=== PATIENT | female | born 1975 | race Two or more races ===

== ENCOUNTER 2016-09-06 13:55 | Emergency (ER) | payer OTHER ==
[~2016-09-06] VITALS: Ht 162.6 cm; Wt 54.4 kg
[2016-09-06 14:10] VITALS: BP 121/81
[2016-09-06] MEDS ORDERED: cetrizine 10 MG TABLET ONE (14:42)
[2016-09-06] MEDS ORDERED: cetrizine 10 MG TABLET PO ONE (15:00)
== END 2016-09-06 14:55 | disposition home or self-care (01) ==
LOC: ER 13:57
DX: T78.40XA Allergy, unspecified, initial encounter (principal); S80.862A Insect bite (nonvenomous), left lower leg, initial encounter; S80.861A Insect bite (nonvenomous), right lower leg, initial encounter; J45.909 Unspecified asthma, uncomplicated; W57.XXXA Bitten or stung by nonvenomous insect and other nonvenomous arthropods, initial encounter; Y93.89 Activity, other specified; Y92.89 Other specified places as the place of occurrence of the external cause; Y99.8 Other external cause status
CPT/HCPCS: 99283; A4606; Z7610

== ENCOUNTER 2022-04-29 15:45 | Inpatient (IN) | payer BC, OTHER ==
[~2022-04-29] VITALS: Ht 160 cm; Wt 50.3 kg
--- NOTE | 2022-04-29 16:33 | NUR ---
Patient came in to the er sent by oncologist for possible pleural effusion or atelectasis. On room air, breathing evenly and unlabored. Kept comfortable, will continue to monitor accordingly.
[2022-04-29 19:57] LABS: BASOPHILS % (AUTO) 0.8 % (0.0-2.0); EOSINOPHILS % (AUTO) 1.2 % (0.0-6.0); HEMATOCRIT 35 % (33-45); HEMOGLOBIN 11.6 g/dL (11.5-14.8); LYMPHOCYTES # (AUTO) 0.4 K/uL (0.8-4.8); LYMPHOCYTES % (AUTO) 16.1 % (20.0-44.0); MEAN CORPUSCULAR HGB CONC 33 g/dl (31.0-36.0); MEAN CORPUSCULAR VOLUME 96 fL (82-100); MONOCYTES # (AUTO) 0.2 K/uL (0.1-1.30); MONOCYTES % (AUTO) 6.1 % (2.0-12.0); NEUTROPHILS # (AUTO) 2.1 K/uL (1.8-8.9); NEUTROPHILS % (AUTO) 75.8 % (43.0-81.0); PLATELET COUNT (AUTO) 177 K/uL (150-450); RED BLOOD CELL COUNT(AUTO) 3.62 MIL/uL (4.0-5.2); WHITE BLOOD COUNT (AUTO) 2.7 K/uL (4.3-11.0)
[2022-04-29 20:01] LABS: ALBUMIN 3.6 g/dL (3.4-5.0); BILIRUBIN,TOTAL 0.3 mg/dL (0.2-1.0); CALCIUM, SERUM 8.2 mg/dL (8.5-10.1); CREATININE 0.5 mg/dL (0.6-1.3); POTASSIUM 3.8 mmol/L (3.5-5.1)
--- NOTE | 2022-04-29 20:36 | NUR ---
pt placed on nrb 15lpm
[2022-04-29] MEDS ORDERED: KETAMINE HCL (500MG/10ML) 50 MG/ML VIAL ONE (22:44)
[2022-04-29] MEDS ORDERED: KETAMINE HCL(200MG/20ML) 10 MG/ML VIAL IV ONE (23:00)
[2022-04-29 23:11] LABS: BAND % (MANUAL) 6 % (0.0-5.0); LYMPHOCYTES % (MANUAL) 14 % (16-48); MONOCYTES % (MANUAL) 2 % (0-11.0); NEUTROPHILS % (MANUAL) 78 (42-76)
--- NOTE | 2022-04-29 23:15 | NUR ---
SET UP FOR RT SIDED CHEST TUBE WITH DR DIAZ 5 VS 99/55 106 HR 100% 15 LPM NRB 2319 KETAMINE 25MG RT HAND 20G VS: 133/89 122 HR 100% NRB 2319 PIGTAIL INSERTED, ATRIA BUBBLING 2 VS 91/54 85 BPM 100% NRB 2339 ZOFRAN 4MG GIVEN 2343 127/89 94HR 98% NRB
[2022-04-29] MEDS ORDERED: ONDANSETRON HCL/PF 4 MG/2 ML VIAL ONE (23:38)
[2022-04-30] VITALS (7 sets, daily range): BP systolic 90–103; BP diastolic 60–78
[2022-04-30] MEDS ORDERED: PROCHLORPERAZINE EDISYLATE 10 MG/2 ML VIAL IVP ONE
[2022-04-30] MEDS ORDERED: PROCHLORPERAZINE EDISYLATE 10 MG/2 ML VIAL ONE
[2022-04-30] MEDS ORDERED: diphenhydrAMINE HCL 50 MG/ML VIAL ONE
[2022-04-30] MEDS ORDERED: diphenhydrAMINE HCL 50 MG/ML VIAL IV ONE
[2022-04-30] MEDS ORDERED: ONDANSETRON HCL/PF 4 MG/2 ML VIAL ONE (00:02)
--- NOTE | 2022-04-30 00:10 | NUR ---
PETE SENT TO LAB
--- NOTE | 2022-04-30 00:16 | NUR ---
PT STILL C/O NAUSEA. MD AWARE. VERBAL ORDER FOR 4MG ZOFRAN NOTED AND CARRIED OUT.
[2022-04-30] MEDS ORDERED: MAGNESIUM HYDROXIDE 30 ML UDC PO PRN (00:30)
[2022-04-30] MEDS ORDERED: ACETAMINOPHEN 325 MG TABLET PO PRN (00:30)
[2022-04-30] MEDS ORDERED: ONDANSETRON HCL/PF 4 MG/2 ML VIAL IV ONE ×2 (00:30)
[2022-04-30] MEDS ORDERED: MAG HYDROX/AL HYDROX/SIMETH 30 ML UDC PO PRN (00:30)
[2022-04-30] MEDS ORDERED: Z GUARD REMEDY 4 OZ OINT TP PRN (00:30)
[2022-04-30] MEDS ORDERED: LORAZEPAM INJ 2 MG/ML VIAL IV PRN (00:30)
[2022-04-30] MEDS ORDERED: ONDANSETRON HCL/PF 4 MG/2 ML VIAL IVP PRN (00:30)
--- NOTE | 2022-04-30 01:00 | NUR ---
REPORT GIVEN TO RN RR
--- NOTE | 2022-04-30 01:20 | NUR ---
GIFT OFFICER NOTES PATIENT RECEIVED FROM ER VIA [facility] ACCOMPANIED BY RN AND TRAVOGRAPH OPERATOR. BREATHING ON ROOM AIR, SATURATION 100%. VITAL SIGNS STABLE. PNEUMOTHORAX DETECTED. CHEST TUBE IN PLACED AND SECURED. IV ACCESS: RIGHT CENTRAL VENOUS LINE WITH ONGOING CHEMOTHERAPY. WITH ADVANCED DIRECTIVES PROVIDED. READ AND DOCUMENTED. CHEST TUBE INCISION SITE AT RIGHT MID AXILLARY LINE AT 5TH ICS. DRY AND INTACT. ORIENTED TO ROOM SET-UP. SAFETY MEASURES INITIATED. CALL LIGHT WITHIN REACH. PATIENT REQUESTED TO BE ALONE AT THIS TIME. PROVIDED COMFORT. WILL CONT TO MONITOR Addendum: 04/30/22 at 0449 by DUKE STORY RN ON NEUTROPENIC PRECAUTION.
[2022-04-30] MEDS: IV NS 0.9% 1,000 ML IV PRN ×2 (03:36→23:33)
--- NOTE | 2022-04-30 07:01 | NUR ---
HIGHWAY TRUCK DRIVER CLOSING NOTES PATIENT AWAKE IN BED. FOWLERS POSITION. ON NEUTROPENIC PREC. BREATHING ON ROOM AIR, SATURATION 100%. VITAL SIGNS STABLE. CHEST TUBE IN PLACED AND SECURED. IV ACCESS: RIGHT CENTRAL VENOUS LINE WITH ONGOING CHEMOTHERAPY. CHEST TUBE INCISION SITE AT RIGHT MID AXILLARY LINE AT 5TH ICS. DRY AND INTACT. LEFT HAND #20, RUNNING NS @75ML/HR, INFUSING WELL. SAFETY MEASURES MAINTAINED. CALL LIGHT WITHIN REACH. WILL ENDORSE TO NEXT SHIFT FOR VIKRAM.
--- NOTE | 2022-04-30 07:30 | NUR ---
RN Opening Note Pt AOx4 able to express her concerns. Introduced myself to pt and discussed plan of care, pt states she would like to transfer to [facility] since she has established care there. Will communicate with CM. All safety precautions taken, call light and table within reach, bed at lowest position. Will continue to monitor throughout shift.
[2022-04-30] MEDS ORDERED: ALBU8.5H8 INH (08:13)
[2022-04-30] MEDS: PANTOPRAZOLE 40 MG VIAL IV SCH (09:08)
[2022-04-30 12:25] LABS: BASOPHILS % (AUTO) 0.6 % (0.0-2.0); EOSINOPHILS % (AUTO) 0.3 % (0.0-6.0); HEMATOCRIT 27 % (33-45); HEMOGLOBIN 8.8 g/dL (11.5-14.8); LYMPHOCYTES # (AUTO) 0.3 K/uL (0.8-4.8); LYMPHOCYTES % (AUTO) 17.5 % (20.0-44.0); MEAN CORPUSCULAR HGB CONC 33 g/dl (31.0-36.0); MEAN CORPUSCULAR VOLUME 98 fL (82-100); MONOCYTES # (AUTO) 0.2 K/uL (0.1-1.30); MONOCYTES % (AUTO) 11.2 % (2.0-12.0); NEUTROPHILS # (AUTO) 1.1 K/uL (1.8-8.9); NEUTROPHILS % (AUTO) 70.4 % (43.0-81.0); PLATELET COUNT (AUTO) 133 K/uL (150-450); RED BLOOD CELL COUNT(AUTO) 2.72 MIL/uL (4.0-5.2)
[2022-04-30 12:32] LABS: WHITE BLOOD COUNT (AUTO) 1.5 K/uL (4.3-11.0)
[2022-04-30 12:51] LABS: ALBUMIN 2.6 g/dL (3.4-5.0); BILIRUBIN,TOTAL 0.7 mg/dL (0.2-1.0); CALCIUM, SERUM 6.4 mg/dL (8.5-10.1); CREATININE 0.3 mg/dL (0.6-1.3); POTASSIUM 2.9 mmol/L (3.5-5.1); TOTAL PROTEIN, SERUM 5.1 g/dL (6.4-8.2)
[2022-04-30] MEDS ORDERED: POTASSIUM CHLORIDE 20 MEQ TAB.PRT.SR PO ONE (14:00)
--- NOTE | 2022-04-30 18:09 | NUR ---
RN Closing Note Patient AOx4 able to express her concerns. Throughout shift pt communicated with her providers and made them aware of her current condition. Patient stable throughout shift, administered medication and provided care as needed. All safety precautions taken, call light and table within reach. Will endorse to night nurse for continuity of care.
--- NOTE | 2022-04-30 19:05 | NUR ---
INSTRUMENT DESIGNER OPENING NOTE PATIENT IS SITTING IN BED WATCHING IPAD. HER FAMILY MEMBER IS IN HER ROOM. SHE IS ALERT AND ORIENTED, AO X 4. SHE IS ON RA, TOLERATED WELL. NO S/S OF SOB OR DISTRESS. IV ACCESS IS AT HER RIGHT HAND, #20G, SL. PATIENT REFUSED HAVING THE IV FLUID RUNNING CURRENTLY. SHE IS ON EXTERNAL TELE MONITOR, HER HEART RHYTHM IS SR AT 80s. PATIENT IS CALM. NO COMPLAIN OF HAVING PAIN. PATIENT IS ON REVERSE ISOLATION. PATIENT HAS CHEST TUBE; PATENT AND INTACT. SAFETY PRECAUTIONS ARE IN PLACE: BED IN LOWEST AND LOCKED POSITION; CALL GOODRICH AND TABLE ARE WITHIN REACH; SIDE RAILS UP X 2. INSTRUCTED PATIENT TO USE THE CALL GOODRICH IF SHE NEEDS HELP. WILL CONTINUE MONITORING THE PATIENT AND PROVIDE THE CARE SHE NEEDS.
--- NOTE | 2022-04-30 21:10 | NUR ---
MANAGER MEDICAL AFFAIRS NOTE CREDIT CHECKER VITAL SIGNS FOR THE PATIENT, RR IS 12. RECHECKED THE PATIENT AND COUNTED NUMBER OF CHEST RISING FOR 60 SECONDS, IT IS TOTAL 16/ MIN. PATIENT HAS NO S/S OF SOB OR DISTRESS.
--- NOTE | 2022-04-30 23:48 | NUR ---
ENT SURGEON NOTE PATIENT STATED SHE FELT FEVERISH. TEMPERATURE WAS TAKEN, IT IS: 98.5F, ORALLY. PATIENT REFUSED HAVING THE IV FLUID NS @75 ML/HR RUNNING BECAUSE SHE NEEDED TO CONTACT HER ONCOLOGIST TOMORROW AND DISCUSSED WHETHER IT WAS OKAY FOR HER TO HAVE THE IV FLUID RUNNING.
--- NOTE | 2022-05-01 00:25 | NUR ---
SUPPLY CHAIN TECH NOTE RECEIVED PHONE CALL FROM [facility] TRANSFER NURSE VC, ACCORDING TO HIM, THEY DON'T HAVE BED FOR THIS PATIENT NOW. PATIENT'S INFORMATION WAS TAKEN BY , AND INSTRUCTED TO LET INVESTIGATOR FRAUD TO FOLLOW UP WITH THEM TOMORROW. CHARGE NURSE, SANTO, NOTIFIED.
[2022-05-01 01:17] VITALS: BP 95/58
[2022-05-01 03:45] LABS: BAND % (MANUAL) 8 % (0.0-5.0); BASOPHILS % (MANUAL) 0 % (0.0-2.0); EOSINOPHILS % (MANUAL) 0 % (0-4); LYMPHOCYTES % (MANUAL) 16 % (16-48); MONOCYTES % (MANUAL) 12 % (0-11.0); NEUTROPHILS % (MANUAL) 64 (42-76)
[2022-05-01 06:07] VITALS: BP 98/65
--- NOTE | 2022-05-01 06:51 | NUR ---
LENS INSERTER CLOSING NOTE PATIENT IS SLEEPING. EASILY BEING AROUSED. PATIENT IS ON RA, TOLERATED WELL. INSTRUCTED PATIENT TO PUT THE NC ON IF SHE FEELS SOB OR DISTRESS AND CALL FOR HELP. PATIENT VERBALIZED UNDERSTANDING. SHE IS ON EXTERNAL TELE MONITOR, HER HEART RHYTHM IS SR AT 80s. PATIENT IS CALM. NO COMPLAIN OF HAVING PAIN. PATIENT IS ON REVERSE ISOLATION. PATIENT HAS CHEST TUBE, PATENT AND INTACT. ZERO OUTPUT FROM THE CHEST TUBE. SAFETY PRECAUTIONS ARE IN PLACE: BED IN LOWEST AND LOCKED POSITION; CALL GOODRICH AND TABLE ARE WITHIN REACH; SIDE RAILS UP X 2. INSTRUCTED PATIENT TO USE THE CALL GOODRICH IF SHE NEEDS HELP. WILL ENDORSE NEXT SHIFT NURSE TO CONTINUE PATIENT CARE.
[2022-05-01 06:57] LABS: BASOPHILS % (AUTO) 0.4 % (0.0-2.0); EOSINOPHILS % (AUTO) 1.3 % (0.0-6.0); HEMATOCRIT 30 % (33-45); HEMOGLOBIN 9.9 g/dL (11.5-14.8); LYMPHOCYTES # (AUTO) 0.4 K/uL (0.8-4.8); LYMPHOCYTES % (AUTO) 34.5 % (20.0-44.0); MEAN CORPUSCULAR HGB CONC 34 g/dl (31.0-36.0); MEAN CORPUSCULAR VOLUME 97 fL (82-100); MONOCYTES # (AUTO) 0.1 K/uL (0.1-1.30); NEUTROPHILS # (AUTO) 0.6 K/uL (1.8-8.9); NEUTROPHILS % (AUTO) 52.8 % (43.0-81.0); PLATELET COUNT (AUTO) 144 K/uL (150-450); RED BLOOD CELL COUNT(AUTO) 3.04 MIL/uL (4.0-5.2)
[2022-05-01 07:23] LABS: CALCIUM, SERUM 8.4 mg/dL (8.5-10.1); CREATININE 0.4 mg/dL (0.6-1.3); MAGNESIUM 2.4 mg/dL (1.8-2.4); PHOSPHORUS 3.5 mg/dL (2.5-4.9); POTASSIUM 3.8 mmol/L (3.5-5.1)
--- NOTE | 2022-05-01 07:25 | NUR ---
RN CLOSING NOTE RECEIVED PATIENT IN BED, AWAKE, A/O X4, NO SIGNS OF ACUTE DISTRESS NOTED. ON ROOM AIR, NO SOB NOTED, BREATHING EVEN AND UNLABORED. NOTED WITH CHEST TUBE ON RIGHT CHEST, NO OUTPUT NOTED. WITH IV ACCESS ON RIGHT HAND #20G, INTACT AND PATENT, IVF OF NS NOT RUNNING PER PATIENTS REQUEST. ON TELE MONITOR CURRENT READING SHOWING SINUS RHYTHM, HR @77. SAFETY MEASURE IN PLACE. BED IN LOWEST AND LOCKED POSITION, SIDE RAILS UP X2, CALL LIGHT PLACED WITHIN EASY REACH. WILL CONTINUE TO MONITOR PATIENT. Addendum: 05/01/22 at 1855 by ROBERTA ALBARADO RN *OPENING NOTE
[2022-05-01 08:31] VITALS: BP 99/56
[2022-05-01] MEDS: PANTOPRAZOLE 40 MG VIAL IV SCH (09:00)
[2022-05-01 12:01] VITALS: BP 94/67
[2022-05-01 12:08] LABS: BAND % (MANUAL) 1 % (0.0-5.0); LYMPHOCYTES % (MANUAL) 45 % (16-48); MONOCYTES % (MANUAL) 9 % (0-11.0); NEUTROPHILS % (MANUAL) 45 (42-76)
[2022-05-01] MEDS ORDERED: ALBUTEROL FS 2.5 MG/0.5 ML VIAL.NEB NEB PRN (13:30)
[2022-05-01] MEDS ORDERED: ALBUTEROL SULFATE 8 GM HFA.AER.AD IH SCH (13:30)
[2022-05-01 15:53] LABS: THYROID STIMULATING HORMONE 1.215 uIU/mL (0.358-3.74)
[2022-05-01 15:59] VITALS: BP 112/72
[2022-05-01] MEDS ORDERED: ZOSYN IVPB 3.375 G in IV D5W 50ml IV ONE (16:00)
--- NOTE | 2022-05-01 16:00 | NUR ---
RN NOTE PATIENT'S ZOSYN 3.375GM NOT YET GIVEN PER PATIENT'S REQUEST. PATIENT REQUESTS TO ASK HER ONCOLOGIST FIRST IF OK TO GIVE BEFORE TAKING THE MEDICATION.
[2022-05-01] MEDS: TBO-FILGRASTIM 300 MCG/0.5 ML SYRINGE SQ SCH (17:34)
--- NOTE | 2022-05-01 18:30 | NUR ---
RN NOTE PATIENT'S ZOSYN NOT ADMINISTERED PER PATIENT'S REQUEST. REFUSED MEDS UNLESS GIVEN AN OK FROM HER ONCOLOGIST. PT LEFT MESSAGE TO ONCOLOGIST BUT NO REPLY YET. WILL ENDORSE TO NEXT SHIFT.
--- NOTE | 2022-05-01 18:55 | NUR ---
RN OPENING PATIENT IN BED, AWAKE, A/O X4, NO SIGNS OF ACUTE DISTRESS NOTED. ON ROOM AIR, NO SOB NOTED, BREATHING EVEN AND UNLABORED. WITH CHEST TUBE ON RIGHT CHEST, NO OUTPUT NOTED. IV ACCESS ON RIGHT HAND #20G, INTACT AND PATENT, SALINE LOCKED. REMAINS ON TELE MONITOR CURRENT READING SHOWING SINUS RHYTHM, HR @90. SAFETY MEASURE IN PLACE. BED IN LOWEST AND LOCKED POSITION, SIDE RAILS UP X2, CALL LIGHT PLACED WITHIN EASY REACH. WILL ENDORSE TO NEXT SHIFT FOR CONTINUITY OF CARE.
--- NOTE | 2022-05-01 19:30 | NUR ---
beny rn opening received patient sitting in bed, using her laptop. a/ox4. no s/d of apparent distress on room air at this time. denies pain at this time. Rt. chest tube in place to wall suction, no bubbling noted, no output noted. patient reading sr with 86 bpm on the tele monitor. bedside commode noted in place. Neutropenic isolation in place. rt. hand #20g not running fluid at this time as refused by patient per report. patient is for transfer and awaiting bed in [facility]. call light within reach. safety in place. will continue with patient plan of care.
[2022-05-02 00:07] VITALS: BP 103/59
--- NOTE | 2022-05-02 00:08 | NUR ---
noc rn note- non-admin patient adamantly refused IV zosyn scheduled for 0000. Per patient she wants her primary's oncologist's approval first, and "maybe tomorrow" per patient. patient teaching done about risk and benefits. patient acknowledged.
[2022-05-02 04:18] VITALS: BP 110/68
[2022-05-02 06:11] LABS: BILIRUBIN,URINE NEGATIVE (NEGATIVE); COLOR,URINE YELLOW (YELLOW); LEUKOCYTE ESTERASE ,URINE NEGATIVE (NEGATIVE); NITRITE, URINE NEGATIVE (NEGATIVE); PROTEIN,URINE NEGATIVE (NEGATIVE); UGLUCOSE NEGATIVE (NEGATIVE)
[2022-05-02 07:06] LABS: BACTERIA,URINE Rare /HPF (None Seen); RBC,URINE 0-2 /HPF (0-2); SQUAMOUS EPITHELIAL CELL,UR Few /HPF (None Seen); WBC,URINE 0-2 /HPF (0-3)
--- NOTE | 2022-05-02 07:11 | NUR ---
noc rn closing note patient in bed, intermittent with her sleep. a/ox4. no s/s of apparent distress on room air with saturation of 98%. denies any pain nor discomfort at this time. reading s with 80 bpm in the tele monitor. rt. hand #20 g on saline lock. Rt. chest tube intact with abdominal binder-- connected to suction no bubbling noted. all needs attended. reverse isolation strictly followed. call light within reach. endorse to morning shift rn for continuity of patient care.
[2022-05-02 08:00] VITALS: BP 91/57
[2022-05-02] MEDS: PIPERACILLIN /TAZOBACTAM 3.375 G in IV D5W 100 ML IV SCH ×4 (08:00→16:00)
[2022-05-02 08:04] LABS: BASOPHILS % (AUTO) 0.6 % (0.0-2.0); EOSINOPHILS % (AUTO) 0.9 % (0.0-6.0); HEMATOCRIT 30 % (33-45); HEMOGLOBIN 10.3 g/dL (11.5-14.8); LYMPHOCYTES # (AUTO) 0.4 K/uL (0.8-4.8); LYMPHOCYTES % (AUTO) 24.2 % (20.0-44.0); MEAN CORPUSCULAR HGB CONC 35 g/dl (31.0-36.0); MEAN CORPUSCULAR VOLUME 95 fL (82-100); MONOCYTES # (AUTO) 0.2 K/uL (0.1-1.30); MONOCYTES % (AUTO) 11.5 % (2.0-12.0); NEUTROPHILS % (AUTO) 62.8 % (43.0-81.0); PLATELET COUNT (AUTO) 146 K/uL (150-450); RED BLOOD CELL COUNT(AUTO) 3.13 MIL/uL (4.0-5.2)
[2022-05-02] MEDS: PANTOPRAZOLE 40 MG VIAL IV SCH (08:09)
--- NOTE | 2022-05-02 08:10 | NUR ---
SWINE EXTENSION FIELD SPECIALIST NOTES PT IN BED, AWAKE, ALERT AND ORIENTED, NO COMPLAINT OF PAIN, NOT IN DISTRESS, NO COMPLAINT OF SOB, WITH CHEST TUBE CONNECTED TO WALL SUCTION, PT REFUSED IV ATB AND PROTONIX IV, STATES THAT HER MD HAS NOT RESPONDED YET REGARDING THE MEDICATIONS, CALL LIGHT WITHIN REACH, BREAKFAST TRAY SERVED, REVERSE ISOLATION PRECAUTIONS OBSERVED.
[2022-05-02 08:15] LABS: CALCIUM, SERUM 7.9 mg/dL (8.5-10.1); CREATININE 0.4 mg/dL (0.6-1.3); MAGNESIUM 2.3 mg/dL (1.8-2.4); PHOSPHORUS 3.7 mg/dL (2.5-4.9); POTASSIUM 3.5 mmol/L (3.5-5.1)
[2022-05-02 08:24] LABS: WHITE BLOOD COUNT (AUTO) 1.6 K/uL (4.3-11.0)
--- NOTE | 2022-05-02 11:07 | NUR ---
PROPOSAL EDITOR NOTES PT SEEN AND EXAMINED BY DR. SILVA, PLAN OF CARE DISCUSSED WITH PT, INFORMED OF PT REFUSING IV ATB, AWAITING BED AVAILABILITY AT [facility].
[2022-05-02 12:00] VITALS: BP 107/74
[2022-05-02 14:06] LABS: *ANA ANTI-CENTROMERE B AB <0.2 AI (0.0-0.9); *ANA ANTI-DNA(DS) AB, QN <1 IU/mL (0-9); *ANA ANTI-JO-1 <0.2 AI (0.0-0.9); *ANA ANTICHROMATIN ANTIBODY <0.2 AI (0.0-0.9); *ANA RNP ANTIBODIES <0.2 AI (0.0-0.9); *ANA SJOGREN'S ANTI-SS-A <0.2 AI (0.0-0.9); *ANA SJOGREN'S ANTI-SS-B <0.2 AI (0.0-0.9); *ANAANTI-SCLERODERMA-70 AB <0.2 AI (0.0-0.9); *ANASMITH AB <0.2 AI (0.0-0.9)
[2022-05-02 15:03] LABS: LYMPHOCYTES % (MANUAL) 24 % (16-48); MONOCYTES % (MANUAL) 11 % (0-11.0); NEUTROPHILS % (MANUAL) 65 (42-76)
[2022-05-02 16:00] VITALS: BP 126/84
[2022-05-02] MEDS: TBO-FILGRASTIM 300 MCG/0.5 ML SYRINGE SQ SCH (18:48)
--- NOTE | 2022-05-02 19:13 | NUR ---
BEATER DUMPER NOTES PT IN BED, AWAKE, ALERT AND ORIENTED, NO COMPLAINT OF PAIN, NO SOB, ASSISTED TO BATHROOM NEEDED, CHEST TUBE IN PLACE, ATTACHED TO WATER SEAL, DISCHARGE ORDER GIVEN BY , PT FOR TRANSFER TO [facility], REPORT GIVEN TO FELIX BENÍTEZ, DISCHARGE AND MEDICATION INSTRUCTIONS PROVIDED TO PT, VERBALIZED UNDERSTANDING, CONSENT FOR TRANSFER SIGNED BY PT, BELONGINGS ACCOUNTED FOR, PICKED UP BY [facility] PERSONNEL, LEFT VIA GUERNEY IN STABLE CONDITION.
== END 2022-05-02 19:30 | disposition short-term general hospital (02) | DRG 199 ==
LOC: ER 15:51 → TELE 04-30 00:28
PROVIDERS: ADMIT Nurse Practitioner Acute Care; ATTEND Student in an Organized Health Care Education/Training Program
PROC: 0W9930Z Drainage of Right Pleural Cavity with Drainage Device, Percutaneous Approach (ICD-10-PCS; principal; 2022-04-30)
DX: J93.83 Other pneumothorax (principal); D61.810 Antineoplastic chemotherapy induced pancytopenia; E43 Unspecified severe protein-calorie malnutrition; R64 Cachexia; C78.01 Secondary malignant neoplasm of right lung; Z68.1 Body mass index [BMI] 19.9 or less, adult; T45.1X5A Adverse effect of antineoplastic and immunosuppressive drugs, initial encounter; Y92.89 Other specified places as the place of occurrence of the external cause; D72.825 Bandemia; C50.912 Malignant neoplasm of unspecified site of left female breast; Z90.12 Acquired absence of left breast and nipple; J45.909 Unspecified asthma, uncomplicated; Z90.2 Acquired absence of lung [part of]; Z88.8 Allergy status to other drugs, medicaments and biological substances
CPT/HCPCS: 36415; 71045-TC; 71250-TC; 80048-TC; 80053-TC; 81001; 82607-TC; 82728-TC; 83540-TC; 83735-TC; 83880; 84100-TC; 84443-TC; 84484-TC; 84703-TC; 85025-TC; 86225; 86235; 86431-TC; 86706; 86803; 87040-TC; 87081-TC; 87340; C9113; G0378; G0500; J0780; J1200; J1442; J2405; J2543; J3490; J7030; J7060